=== PATIENT | female | born 1970 | race Caucasian/White ===

== ENCOUNTER 2023-09-02 07:16 | Emergency (ER) | payer MEDICAID, OTHER ==
[~2023-09-02] VITALS: Ht 180.3 cm; Wt 115.0 kg
[2023-09-02 07:20] VITALS: O2SAT 100
[2023-09-02] MEDS ORDERED: IBUP-2029 MT (08:34)
[2023-09-02] MEDS: IBUPROFEN 600MG TABLET PO ONE (08:42)
[2023-09-02 08:50] VITALS: BP 137/91; PULSE 98; RESP 18; TEMP 98.2
== END 2023-09-02 09:18 | disposition home or self-care (01) ==
LOC: ER 07:57
DX: S80.11XA Contusion of right lower leg, initial encounter (principal); Z98.890 Other specified postprocedural states; Z88.1 Allergy status to other antibiotic agents; Z86.73 Personal history of transient ischemic attack (TIA), and cerebral infarction without residual deficits; W01.0XXA Fall on same level from slipping, tripping and stumbling without subsequent striking against object, initial encounter; Y93.89 Activity, other specified; Y92.89 Other specified places as the place of occurrence of the external cause; Y99.8 Other external cause status
CPT/HCPCS: 73562; 73610; 99284